=== PATIENT | female | born 1990 | race Caucasian/White ===

== ENCOUNTER 2020-01-14 13:46 | Emergency (ER) | payer MEDICAID, SELFPAY ==
--- NOTE | 2020-01-14 13:56 | XR_ITS ---
EXAMINATION: XR third finger, LEFT CLINICAL INFORMATION: Fracture COMPARISON: None TECHNIQUE: Three views of the left third finger. FINDINGS: There is no evidence of acute fracture or dislocation of the left third finger. Soft tissue swelling is seen about the proximal third interphalangeal joint. XR/XR finger LT min 2V IMPRESSION: Soft tissue swelling left third proximal interphalangeal joint without underlying bony abnormality appreciated.
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
[2020-01-14 14:00] VITALS: BP 136/86; PULSE 96; RESP 14; TEMP 37.3; O2SAT 99; BMI 19.1
== END 2020-01-14 15:37 | disposition home or self-care (01) ==
PROVIDERS: Emergency Provider Emergency Medicine
DX: S60.032A Contusion of left middle finger without damage to nail, initial encounter (principal); M79.645 Pain in left finger(s); Y29.XXXA Contact with blunt object, undetermined intent, initial encounter; Y93.9 Activity, unspecified; Y92.830 Public park as the place of occurrence of the external cause; Y99.9 Unspecified external cause status
CPT/HCPCS: 73140; 99283

== ENCOUNTER → 2020-01-22 10:08 | Outpatient (BNVA) | payer MEDICAID, SELFPAY | PROVIDERS: Visit Provider Orthopaedic Surgery | DX: S63.633A Sprain of interphalangeal joint of left middle finger, initial encounter (principal); M25.642 Stiffness of left hand, not elsewhere classified | CPT/HCPCS: 99202 ==

== ENCOUNTER 2024-08-31 11:15 | Inpatient (IN) | payer OTHER, SELFPAY ==
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
[2024-08-31 11:20] VITALS: BP 126/78; BP 126/80; PULSE 90; RESP 19; TEMP 36.2; O2SAT 99; BMI 17.6
--- OUTSIDE RECORDS SUMMARY | 2024-08-31 11:51 | XMS_ITS | Clinical Summary ---
Author Organization [employer] Address [address] [place] [address] Care Team Providers Care Brand Advisor Name Role Phone Unavailable Primary Care Provider Unavailabl e Social History Tobacco Use Types Packs/Day Years Used Date Smoking Tobacco: Never Assessed Comments Unknown Sex and Gender Information Value Date Recorded Sex Assigned at Female 12/12/2021 10:17 AM EDT Legal Sex Female 10:17 AM EDT Gender Identity Female 05/19/2024 12:57 PM EDT Sexual Orientation Not on file Plan of Treatment Health Maintenance Due Date Last Done Comments Depression Screening 1989 HIV Screening 1989 SDOH Screening 1989 Disability Screening 1989 Alcohol/Substance Use Screening 2001 Tobacco Screening 2001 Family Planning (PISQ) 2004 HPV Vaccines (1 - 3-dose series) 2004 Hepatitis C Screening 09/01/2007 DTaP/Tdap/Td Vaccines (1 - Tdap) 2008 Hepatitis B Vaccines (1 of 3 - 19+ 3-dose series) 2008 Pap Smear 2010 Cervical Cancer Screening 09/01/2019 HPV/Cotest 09/01/2019 COVID-19 Vaccine (1 - 2023-2 5 season) 2023 Influenza Vaccine (#1) 2024 06/30/2021 Zoster Vaccines (1 of 2) 09/01/2039 RSV Patients and Pa tients Aged 60 years or older (1 - 1-dose 75+ series) 2064 HIB Vaccines Aged Out No longer eligi ble based on patient's age to complete this topic Hepatitis A Vaccines Aged Out No long er eligible based on patient's age to complete this topic IPV Vaccines Aged Out No longer eligi ble based on patient's age to complete this topic Meningococcal B Vaccine Aged Out No l onger eligible based on patient's age to complete this topic Meningococcal Vaccine Aged Out No mariana theodore eligible based on patient's age to complete this topic Pneumococcal Vaccine: Pediat rics (0 to 5 Years) and At-Risk Patients (6 to 49) Years Aged Out No longer eligi ble based on patient's age to complete this topic RSV under 20 months Aged Out No longe r eligible based on patient's age to complete this topic Rotavirus Vaccines Aged Out No longer eligible based on patient's age to complete this topic Insurance [facility] [place] [phone]
--- OUTSIDE RECORDS SUMMARY | 2024-08-31 11:51 | XMS_ITS | Encounter Summary ---
Author Organization Formerly [facility] Address [address] [place] [address] Phone Care Team Providers Care Ict Account Manager Name Role Phone Mukesh Jay Primary Care Provider [phone] Encounter Details Date Type Department Care Team (Late st Contact Info) Description 05/30/2022 Telephone [facility]ait[facility] [address] [place] [address] [place] [address] Ramya Don CNM [address] [facility], [address] [place] [address] Social History Tobacco Use Types Packs/Day Years Used Date Smoking Tobacco: Never Smokeless Tobacco: Never Alcohol Use Standard Drinks/Week Comments Not Currently 0 (1 standard drink = 0.6 oz pure alcohol) None during OR POST Comments Yes Sex and Gender Information Value Date Recorded Sex Assigned at Female 03/01/2020 11:19 AM EST Legal Sex Female 10:26 AM EST Gender Identity Female 03/01/2020 11:19 AM EST Sexual Orientation Not on file Occupation Industry Job Start Date Job End Date Stay at home mom Not on file Not on file Not on file documented as of this encounter Plan of Treatment Not on file documented as of this encounter Visit Diagnoses Not on filedocumented in this encounter Care Teams Ict Account Manager Relationship Specialty Start Date End Date Mukesh Jay PA [address] [place] [address] [address] [place] [address] [email or web address] PCP - General Unknown Provider Specialty 01/12/20 documented as of this encounter Additional Source Comments The information contained in this document represents components of the legal health record. It is not the complete legal health record.Formerly [facility]
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
[2024-08-31 11:56] LABS: MANUAL DIFF FLAG NO
[2024-08-31 11:57] LABS: Hematocrit 40.6 % (37.0-47.0); Hemoglobin 13.6 g/dl (12.0-16.0); Imm Gran Abs Auto 0.01 X10*3/uL (0.00-0.03); Imm Gran Pct Auto 0.1 % (0.0-0.4); Lymphocytes Absolute Auto 2.6 X10*3/uL (1.2-4.9); Mean Corpuscular HGB Conc 33.5 g/dl (31.0-35.0); Mean Corpuscular Hemoglobin 28.5 pg (27.0-33.0); Mean Corpuscular Volume 85.1 fL (80.0-98.0); NRBC Abs Auto 0.000 X10*3/uL (0.0-0.012); NRBC Pct Auto 0.0 /100WBC (0.0-0.2); Platelet Count 265 X10*3/uL (160-400); Red Blood Count 4.77 X10*6/uL (4.20-5.50); White Blood Count 6.9 X10*3/uL (4.8-10.8)
[2024-08-31 12:07] LABS: COVID-19 Test Negative (Negative); IDNOW Serial# 55D5AD1C
[2024-08-31 12:14] LABS: Acetaminophen LAB < 3 mcg/mL (<30); Alanine Aminotransferase 30 U/L (0-31); Albumin Level 4.7 g/dL (3.5-5.0); Alkaline Phosphatase 55 U/L (39-117); Anion Gap 14 (12-20); Aspartate Amino Transferase 24 U/L (5-31); Blood Urea Nitrogen 13 mg/dL (9-16); Calcium 9.1 mg/dL (8.4-10.2); Carbon Dioxide 26 mmol/L (22-29); Chloride 107 mmol/L (96-108); Creatinine Clr Calc Pharmacy 85.8; Estimated Glomerular Filt Rate > 60; Potassium 3.8 mmol/L (3.3-5.1); Salicylate < 5.0 mg/dL (15-30); Sodium 143 mmol/L (135-145); Total Protein 6.6 g/dL (6.5-8.0)
--- NOTE | 2024-08-31 14:32 | PC.NURSE ---
Pt began yelling out at staff, offered multiple things by provider, pt in agreement to take PO ativan, this rn medicated per MAR, emotional support provided at this time.
[2024-08-31 16:25] VITALS: BP 103/60; PULSE 55; RESP 15; TEMP 36.2; O2SAT 99
--- NOTE | 2024-08-31 18:08 | PC.NURSE ---
Pt oob to try give urine sample; unable to provide sample at this time; pt anxious, stating she doesn't need to be here ; pt redirected, given po fluids and a snack; pt cooperating at this time
[2024-08-31 21:41] LABS: Appearance Urine Clear; Glucose Urine UA Negative (Negative); PH 7.0 (5.0-9.0); Specific Gravity - Urine 1.025 (1.005-1.025); UMIC TRIGGER UA YES
[2024-08-31 21:42] LABS: UPreg QC Valid YES
[2024-08-31 21:51] LABS: Cannabinoid Screen Urine POSITIVE (Not Detect)
--- NOTE | 2024-09-01 05:26 | PC.NURSE ---
pt came up to nurses station approx 1944 stating she needs to leave to be at work for 299 and needed to be seen by crisis in that moment. this rn told pt i would reach out to care team to see what the plan is for tonight. pt stated there's no plan, i'm not staying overnight. rephrased myself and stated i will speak to care team and let her know what they say. pt stated well i'm not seeing you put the effort in picking up the phone or writing an email. then pt turned around and returned to room. call made to care team who stated pt was seen by CHD and will be reassessed by CARE in AM however plan likely IPLOC. Zhane RAMOS made aware of situation who stated pt was educated on plan of care multiple times and is aware of section 12 and requiring stay overnight with plan for reassess in AM. RACHEL ordered ativan 2mg PO as had good affect earlier. however at that time pt resting comfortably in bed with eyes closed. approx [id number] pt came back to nurses station requesting medication. pt medicated per apr and slept overnight with no events at this time.
[2024-09-01 06:53] VITALS: BP 104/75; PULSE 60; RESP 20; TEMP 37; O2SAT 100
--- NOTE | 2024-09-01 07:10 | PC.NURSE ---
Assumed care of patient at 0645, patient appears to be in no apparent distress this am, showering at this time, offering no complaints to this RN. Per night RN, pt continued to test boundaries with staff, demanding discharge. At this time, pt is a CHD IPLOC but the plan is for CARE team to re-evaluate this am
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
--- NOTE | 2024-09-01 08:22 | PHA.MEDREC ---
Addendum entered by Carlito Botello PharmD 09/01/24 08:56: reviewed Original Note: Pharmacy Consult ? Medication Reconciliation Pharmacy has reviewed the medication reconciliation done by nursing. Claims match med list.
[2024-09-01 16:30] VITALS: BP 120/79; PULSE 83; RESP 16; TEMP 36.4; O2SAT 100
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
[2024-09-01 19:10] VITALS: BMI 17.8
[2024-09-01 20:00] VITALS: BP 124/74; PULSE 67; RESP 14; TEMP 36.9; O2SAT 100
[2024-09-02 07:35] VITALS: BP 110/82; PULSE 85; RESP 17; TEMP 36.4; O2SAT 100
[2024-09-02 08:27] LABS: Hemoglobin A1C 128.1986 umol/L; Total Hemoglobin (HGBA1C) 3871.0066 umol/L
[2024-09-02 08:38] LABS: Cholesterol 180 mg/dL (<200); HDL Cholesterol 51 mg/dL (>40); Triglycerides 81 mg/dL (<150)
[2024-09-02 08:54] LABS: Free T4 (Free Thyroxine) 1.44 ng/dL (0.71-1.85); Thyroid Stimulating Hormone 1.58 uIU/mL (0.32-4.0)
[2024-09-02 09:06] LABS: Folate 7.4 ng/mL (> or = 4.0); Vitamin B12 566 pg/mL (200-900)
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
[2024-09-02 20:00] VITALS: BP 112/56; PULSE 77; RESP 16; TEMP 36.8; O2SAT 100
[2024-09-03 07:45] VITALS: BP 120/75; PULSE 68; RESP 16; TEMP 36.8; O2SAT 97
[2024-09-03 10:01] LABS: Ammonia 25 umol/L (13-55)
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
== END 2024-09-03 11:05 | disposition home or self-care (01) | DRG 885 ==
LOC: HO.ED 09-01 12:27 → HO.PADLT16 09-01 12:29
PROVIDERS: Physician Assistant Medical; Admitting Provider Psychiatry & Neurology Psychiatry; Emergency Provider Emergency Medicine; Visit Provider Psychiatry & Neurology Psychiatry
DX: F31.9 Bipolar disorder, unspecified (principal); F17.210 Nicotine dependence, cigarettes, uncomplicated; Z71.6 Tobacco abuse counseling; Z20.822 Contact with and (suspected) exposure to COVID-19; Z79.899 Other long term (current) drug therapy
CPT/HCPCS: 36415; 80053; 80061; 80143; 80164; 80179; 80307; 81001; 81025; 82140; 82607; 82746; 83036; 84439; 84443; 85025; 87635; 99285

== ENCOUNTER → 2024-09-01 12:21 | Outpatient (BNV) | payer OTHER, SELFPAY | PROVIDERS: Admitting Provider Psychiatry & Neurology Psychiatry; Emergency Provider Emergency Medicine; Visit Provider Psychiatry & Neurology Psychiatry | DX: F31.4 Bipolar disorder, current episode depressed, severe, without psychotic features (principal) | CPT/HCPCS: 90792; 99239 ==

== ENCOUNTER 2024-09-13 06:37 | Inpatient (IN) | payer MEDICAID, SELFPAY ==
--- NOTE | ~2024-09-13 | XR_ITS ---
CLINICAL HISTORY: fall 3 view left ankle Comparison: None provided Findings: No acute fractures. Ankle mortise intact. No significant loss of joint space, osteophytes, or erosions. No ankle effusion. No radiopaque foreign body. IMPRESSION: 1. No acute findings. This document has been electronically signed by: Dimas Chanel MD on 09/13/2024 08:00:26
[2024-09-13 07:00] VITALS: BP 124/86; BP 154/86; PULSE 55; PULSE 62; RESP 19; TEMP 37; O2SAT 100; BMI 26.6
[2024-09-13 07:10] VITALS: BP 154/86; PULSE 62; RESP 19; TEMP 37; O2SAT 100
--- NOTE | 2024-09-13 07:11 | ED_ITS ---
HPI - Psych General Chief Complaint: Psychiatric Symptoms Stated Complaint: SECTION 12 Time Seen by Provider: 09/13/24 07:04 History of Present Illness HPI Narrative: Patient is a 34-year-old female presents today EMS report patient has been hearing voices. Telling her to submit her flush to the Lord. Patient currently denies any auditory visual hallucination no suicidal not homicidal feels depressed. Patient denies any focal weakness. Noncompliant with medications. Denies any recreational drugs Related Data Previous Rx's ?Medication ?Instructions ?Recorded chlorpromazine 25 mg tablet 50 mg (2 x 25 mg) PO BID P RN 09/03/24 agitation 30 days #120 tabs divalproex 500 mg tablet,delayed 500 mg PO Q12H depres sive disorder 09/03/24 release 30 days #60 tabs melatonin 3 mg tablet 3 mg PO BEDTIME PRN insomnia 30 09/03/24 days #30 tabs nicotine (polacrilex) 2 mg gum 4 mg buccal Q2H PRN Po otine 09/03/24 Cravings 30 days #120 ea risperidone 1 mg tablet 1 mg PO BEDTIME 30 days #30 tabs 09/03/24 trazodone 50 mg tablet 50 mg PO BEDTIME PRN insomni a 30 09/03/24 days #30 tabs Allergies Allergy/AdvReac Type Severity Reaction Status Date / Time No Known Allergies (No Known Allergy Verified 09/13/24 07:02 Allergies*) Review of Systems 2 Review of Systems: No fever no chills no chest pain Yes all other systems are reviewed and are negative PMFSH Past Medical History Attestation statement: The following information was validated with the patient. Medical History No known health problems Social History Social History Household Members: Other Household Members Other:: Cousin Housing: Apartment Do you presently have visiting nurse or other home services: No Patient Tobacco Use Status: Current everyday Tobacco user Tobacco use type: Cigarette Cigarettes Per Day: 2 Smoked in Last 30 Days: Yes e-Cigarette/Vaping Use: Never Used Second Hand Smoke Exposure: No Use of substances other than those prescribed or required for medical reasons: No Advance Directives: No Advance Directives Information Provided: Yes Do you have a plan to hurt others: No Plan Patient : No service: No Current occupational status: unemployed Current occupation: Right Handed Sexual orientation: Straight/Heterosexual Physical Exam 2 Exam: Exam: Appearance: Alert. Oriented X3. No acute distress. Eyes: Pupils equal, round and reactive to light. ENT: Pharynx normal. Neck: Normal inspection. Neck supple. No lymph nodes noted. No crepitus CVS: Normal heart rate and rhythm. Pulses normal. Normal S1 and S2 Respiratory: No respiratory distress. Breath sounds normal. No Wheezing. No rales Abdomen: Soft and nontender. No rigidity. No distention. good BS x4 Skin: Skin warm and dry. Normal skin color. Normal skin turgor. Extremities: No lower extremity edema. Neurovascular intact to all extremities. No Lacerations. No Rash Neuro: Oriented X 3. No motor deficit. No sensory deficit. Moving all extermities. No slurred speech. Cranial nerves grossly intact Vital Signs: Vital Signs: Last Vital Signs Temp 97.0 F 09/14/24 18:26 Pulse 87 09/14/24 18:26 Resp 18 09/14/24 18:26 BP 134/88 09/14/24 18:26 Pulse Ox 99 09/14/24 18:26 O2 Del Method Room Air 09/14/24 18:26 BMI result Body Mass Index 26.6 Course Course Course Narrative: Time: 11:27 Date: 09/14/24 Provider: Malika Danielson MD Patient in physician observation for psychiatric evaluation.? No acute events reported overnight. No current complaints. VS stable.? Patient is in bed search status/pending CARE team evaluation. Will continue to monitor. Reevaluation(s) Reevaluation #1: Time: 07:32 Date: 09/15/24 Provider: Malika Danielson MD Patient in physician observation for psychiatric evaluation.? No acute events reported overnight. No current complaints. VS stable.? Patient is in bed search status/pending CARE team evaluation. Will continue to monitor. Medications Administered Generic Name Dose Route Start Last Admin Trade Name Freq PRN Reason Stop Dose Admin Chlorpromazine HCl 50 mg 09/13/24 21:56 09/14/24 18:45 Chlorpromazine Hcl 25 Mg Tablet PO 50 mg BID PRN Administration agitation Divalproex Sodium 500 mg 09/13/24 22:00 09/14/24 21:07 Divalproex Sodium 500 Mg Tablet. PO 500 mg BID AMY Administration Melatonin 3 mg 09/13/24 21:56 09/14/24 21:21 Melatonin 3 Mg Tablet PO 3 mg BEDTIME PRN Administration Insomnia Risperidone 1 mg 09/13/24 22:00 09/14/24 21:07 Risperidone 1 Mg Tablet PO 1 mg BEDTIME AMY Administration Trazodone HCl 50 mg 09/13/24 21:56 09/14/24 21:07 Trazodone Hcl 50 Mg Tablet PO 50 mg BEDTIME PRN Administration Insomnia Discontinued Medications Generic Name Dose Route Start Last Admin Trade Name Freq PRN Reason Stop Dose Admin Lorazepam 1 mg 09/13/24 17:38 09/13/24 18:20 Lorazepam 1 Mg Tablet PO 09/13/24 17:39 1 mg ONCE ONE Administration Lorazepam 1 mg 09/14/24 11:19 09/14/24 11:41 Lorazepam 1 Mg Tablet PO 09/14/24 11:20 1 mg ONCE ONE Administration Medical Decision Making Medical Decision Making MDM Narrative: Will get x-rays and labs will monitor. No distress. Care team consulted September 14 11:00 Took over patient's case at the change of shift. Currently awaiting crisis evaluation. No distress. Differential Diagnosis Differential Diagnoses: The differential diagnosis associated with the presentation includes Depression anxiety sprained ankles, fracture Consult Healthcare Provider Management of the patient was discussed with: Lead Fabricator (Care team) Lab Data 09/13/24 07:21 09/13/24 07:21 Labs: Lab Results 09/13/24 Range/Units 07:21 WBC 8.6 (4.8-10.8) X10*3/uL RBC 4.63 (4.20-5.50) X10*6/uL Hgb 13.1 (12.0-16.0) g/dl Hct 38.6 (37.0-47.0) % MCV 83.4 (80.0-98.0) fL MCH 28.3 (27.0-33.0) pg MCHC 33.9 (31.0-35.0) g/dl RDW 14.1 (11.0-16.0) % Plt Count 242 (160-400) X10*3/uL MPV 10.5 (9.4-12.3) fL Immature Gran % (Auto) 0.2 (0.0-0.4) % Neut % (Auto) 51.2 (45-73) % Lymph % (Auto) 30.2 (20-40) % [place] % (Auto) 11.6 H (2-11) % Eos % (Auto) 6.6 H (0-4) % Baso % (Auto) 0.2 (0-2) % Lymph # (Auto) 2.6 (1.2-4.9) X10*3/uL [place] # (Auto) 1.0 (0.1-1.2) X10*3/uL Eos # (Auto) 0.6 H (0.0-0.4) X10*3/uL Baso # (Auto) 0.0 (0.0-0.2) X10*3/uL Abs Immat Gran (auto) 0.02 (0.00-0.03) X10*3/uL Absolute Neuts (auto) 4.4 (2.0-8.3) x10*3/uL Absolute Nucleated RBC 0.000 (0.0-0.012) X10*3/uL Nucleated RBC % (auto) 0.0 (0.0-0.2) /100WBC Sodium 139 (135-145) mmol/L Potassium 4.0 (3.3-5.1) mmol/L Chloride 107 (96-108) mmol/L Carbon Dioxide 24 (22-29) mmol/L Anion Gap 12 (12-20) BUN 14 (9-16) mg/dL Creatinine 0.65 (0.5-1.4) mg/dL Estim Creat Clear Calc 116.2 Estimated GFR > 60 Random Glucose 90 (60-115) mg/dL Calcium 9.2 (8.4-10.2) mg/dL Total Bilirubin 0.7 (0.0-1.0) mg/dL AST 93 H (5-31) U/L ALT 184 H (0-31) U/L Alkaline Phosphatase 135 H (39-117) U/L Total Protein 7.0 (6.5-8.0) g/dL Albumin 4.6 (3.5-5.0) g/dL Urine Color Dark Yellow Urine Appearance Clear Urine pH 7.0 (5.0-9.0) Ur Specific [place] 1.025 (1.005-1.025) Urine Protein Trace (Neg-Trace) mg/dL Urine Glucose (UA) Negative (Negative) mg/dL Urine Ketones 15 (Negative) mg/dL Urine Blood Negative (Negative) Urine Nitrite Negative (Negative) Ur Leukocyte Esterase Small (1+) H (Negative) Urine RBC 0-2 (0-2) /HPF Urine WBC 6-10 (0-5) /HPF Ur Squamous Epith Cells 6-10 (0-2) /HPF Urine Bacteria 2+ (None Seen) Hyaline Casts 0-2 (0-2) /LPF Urine Test NEGATIVE (NEGATIVE) Salicylates < 5.0 L (15-30) mg/dL Urine Opiates Screen Not Detected (Not Detect) Ur Buprenorphine Scrn Not Detected (Not Detect) ng/mL Ur Oxycodone Screen Not Detected (Not Detect) ng/mL Urine Methadone Screen Not Detected (Not Detect) ng/mL Urine Fentanyl Screen Not Detected (Not Detect) Ur Barbiturates Screen Not Detected (Not Detect) Ur Phencyclidine Scrn Not Detected (Not Detect) Ur Amphetamines Screen Not Detected (Not Detect) U Benzodiazepines Scrn Not Detected (Not Detect) Urine Cocaine Screen Not Detected (Not Detect) U Marijuana (THC) Screen POSITIVE H (Not Detect) Ethyl Alcohol < 10 mg/dL Discharge Plan Discharge Prescriptions: No Action nicotine (polacrilex) 2 mg Gum 4 mg buccal Q2H PRN (Reason: Nicotine Cravings) 30 Days Qty: 120 0RF chlorpromazine 25 mg Tablet 50 mg PO BID PRN (Reason: agitation) 30 Days Qty: 120 0RF risperidone 1 mg Tablet 1 mg PO BEDTIME 30 Days Qty: 30 0RF trazodone 50 mg tablet 50 mg PO BEDTIME PRN (Reason: insomnia) 30 Days Qty: 30 0RF melatonin 3 mg tablet 3 mg PO BEDTIME PRN (Reason: insomnia) 30 Days Qty: 30 0RF divalproex 500 mg tablet,delayed release (DR/EC) 500 mg PO Q12H 30 Days Qty: 60 0RF Interventions: [place]-Suicide Risk Severity Scale Last Done: 09/13/24 07:10 Print Language: Northern Irish
[2024-09-13 07:25] LABS: MANUAL DIFF FLAG NO
[2024-09-13 07:28] LABS: Appearance Urine Clear; Glucose Urine UA Negative (Negative); PH 7.0 (5.0-9.0); Specific Gravity - Urine 1.025 (1.005-1.025); UMIC TRIGGER UACC YES
--- NOTE | 2024-09-13 07:30 | PC.NURSE ---
Patient calm and cooperative at this time. A&O x 3. Patient presents to ED after family reports patient has been hearing audio hallucination Submitting her flesh to the lord . Patient denies audio or visual hallucinations at this time. Patient appears depressed saying I hate my uatsdin, my baby daddy, and my family . Patient has been non compliant with medication regimen. Patient states I dont take my meds as it goes against my abhilash, and the devil says it makes me weak . Patient does complain of left ankle pain rated 7/10 non radiating. +CMS +ROM. Patient escorted to xray by [employer] and security, awaiting results of scan.
[2024-09-13 07:32] LABS: Hematocrit 38.6 % (37.0-47.0); Hemoglobin 13.1 g/dl (12.0-16.0); Imm Gran Abs Auto 0.02 X10*3/uL (0.00-0.03); Imm Gran Pct Auto 0.2 % (0.0-0.4); Lymphocytes Absolute Auto 2.6 X10*3/uL (1.2-4.9); Mean Corpuscular HGB Conc 33.9 g/dl (31.0-35.0); Mean Corpuscular Hemoglobin 28.3 pg (27.0-33.0); Mean Corpuscular Volume 83.4 fL (80.0-98.0); NRBC Abs Auto 0.000 X10*3/uL (0.0-0.012); NRBC Pct Auto 0.0 /100WBC (0.0-0.2); Platelet Count 242 X10*3/uL (160-400); Red Blood Count 4.63 X10*6/uL (4.20-5.50); White Blood Count 8.6 X10*3/uL (4.8-10.8)
[2024-09-13 07:40] LABS: UACC Culture Trigger YES
[2024-09-13 07:48] LABS: Alanine Aminotransferase 184 U/L (0-31); Albumin Level 4.6 g/dL (3.5-5.0); Alkaline Phosphatase 135 U/L (39-117); Anion Gap 12 (12-20); Aspartate Amino Transferase 93 U/L (5-31); Blood Urea Nitrogen 14 mg/dL (9-16); Calcium 9.2 mg/dL (8.4-10.2); Carbon Dioxide 24 mmol/L (22-29); Chloride 107 mmol/L (96-108); Creatinine Clr Calc Pharmacy 116.2; Estimated Glomerular Filt Rate > 60; Potassium 4.0 mmol/L (3.3-5.1); Salicylate < 5.0 mg/dL (15-30); Sodium 139 mmol/L (135-145); Total Protein 7.0 g/dL (6.5-8.0)
[2024-09-13 07:52] LABS: Cannabinoid Screen Urine POSITIVE (Not Detect)
--- OUTSIDE RECORDS SUMMARY | 2024-09-13 08:56 | XMS_ITS | Clinical Summary ---
Author Organization [employer] Address [address] [place] [address] Care Team Providers Care Director [employer] Name Role Phone Unavailable Primary Care Provider [...] to complete this topic Insurance [facility] [place] [id number]
--- OUTSIDE RECORDS SUMMARY | 2024-09-13 08:56 | XMS_ITS | Clinical Summary ---
Author Organization [facility] Address [address] [place] [phone] Phone Care Team Providers [employer] Name Role Phone Physician, No Pcp Primary Care Provider Unavaila ble Allergies No known active allergies Medications omeprazole (PriLOSEC) [address] capsule Take 1 capsule (20 mg total) by mouth 2 (two) times a day. Active Social History Tobacco Use Types Packs/Day Years Used Date Smoking Tobacco: Never Assessed Comments No Sex and Gender Information Value Date Recorded Sex Assigned at Female 05/08/2024 8:56 PM EDT Legal Sex Female 8:43 PM EST Gender Identity Female 05/08/2024 8:56 PM EDT Sexual Orientation Straight 05/08/2024 8: 56 PM EDT Last Filed Vital Signs Vital Sign Reading Time Taken Comments Blood Pressure 108/66 05/09/2024 5:03 AM EDT Pulse 66 05/09/2024 5:03 AM EDT Temperature 36.7 C (98.1 F) 05/09/2024 5:03 AM EDT Respiratory Rate 16 05/09/2024 5:03 AM EDT Oxygen Saturation 98% 05/09/2024 5:03 AM EDT Inhaled Oxygen Concentration - - Weight 38.6 kg (85 lb) 05/08/2024 9:46 PM EDT Height 152.4 cm (5') 05/08/2024 9:46 PM EDT Body Mass Index 16.6 05/08/2024 9:46 PM EDT Plan of Treatment Health Maintenance Due Date Last Done Comments DTaP,Tdap,and Td Vaccines (1 - Tdap) 2008 Hepatitis B Vaccines (1 of 3 - 19+ 3-dose series) 2008 Cervical Cancer Screening: P ap Smear 2010 HIV Screening 03/09/2023 Social Influencers of Health Screening 03/09/2023 COVID-19 Vaccine (3 - 2023-2 5 season) 2023 12/29/2020, 12/08/2020 Depression Screening 02/13/2024 Influenza Vaccine (#1) 2024 06/30/2021 Hepatitis C Screening Completed 06/22/2022 HIB Vaccines Aged Out No longer eligi ble based on patient's age to complete this topic HPV Vaccines Aged Out No longer eligi ble based on patient's age to complete this topic Hepatitis A Vaccines Aged Out No long er eligible based on patient's age to complete this topic IPV Vaccines Aged Out No longer eligi ble based on patient's age to complete this topic MMR Vaccines Aged Out No longer eligi ble based on patient's age to complete this topic Meningococcal ACWY Vaccine Aged Out N o longer eligible based on patient's age to complete this topic Meningococcal B Vaccine Aged Out No l onger eligible based on patient's age to complete this topic Pneumococcal Vaccine: Pediatrics (0 to 5 Years) and At-Risk Patients (6 to 49 Years) Aged Out No longer eligible b ased on patient's age to complete this topic RSV Immunization Patients Under 20 months Aged Out No longer eligible b ased on patient's age to complete this topic Varicella Vaccines Aged Out No longer eligible based on patient's age to complete this topic Insurance [employer] Care Teams [employer] Relationship Specialty Start Date End Date Physician, No Pcp PCP - General 05/08/24
[2024-09-13 09:57] LABS: UPreg QC Valid YES
--- NOTE | 2024-09-13 10:54 | PC.NURSE ---
Medication rec completed, confirmed with patient and Bianca Church at [facility] on [facility] [facility]. Patient said she stopped taking her medications a few weeks ago but doesnt know exact date
--- NOTE | 2024-09-13 13:27 | MHC.CARE ---
Pt will be an inpatient bedsearch.
[2024-09-13 14:22] VITALS: BP 143/82; PULSE 63; RESP 13; TEMP 36.6; O2SAT 100
--- NOTE | 2024-09-13 18:23 | PC.NURSE ---
Patient c/o of anxiety, notified Provider. Administered medication per MAR. Effectiveness pending. Patient also stated I would like to start all my medications again Patient remains calm and cooperative
--- NOTE | 2024-09-13 22:00 | PHA.MEDREC ---
Pharmacy Consult ? Medication Reconciliation Pharmacy has reviewed the medication reconciliation completed by Nursing.
--- NOTE | 2024-09-13 22:56 | PC.NURSE ---
Patient sleeping, awakens easily to verbal stimuli. skin pwd, resp even and non labored, speaking in full, clear sentences. refusing medications at this time, patient apologizing, states she not trying to be rude. patient asked if she is doing okay at this time, patient replied yes, eva and rolled back onto her side to go back to sleep.
--- NOTE | 2024-09-14 02:20 | PC.NURSE ---
patient up and ambulatory to bathroom w/ steady gait then returned to bed
--- NOTE | 2024-09-14 04:15 | PC.NURSE ---
patient woke up to use the restroom. no complaints at this time. ambulated to the restroom w/ a strong/steady gait. no use of assistive devices needed. pt now resting back in bed w/ lights dimmed/eyes closed. patient remains in no apparent distress at this time. pt continues to remain inpatient bed search at this time. plan of care ongoing.
[2024-09-14 07:35] VITALS: BP 129/77; PULSE 65; RESP 18; TEMP 36.7; O2SAT 100
--- NOTE | 2024-09-14 08:06 | PC.NURSE ---
patient speaking w/ care team at this time. plan of care/disposition ongoing.
[2024-09-14 18:26] VITALS: BP 134/88; PULSE 87; RESP 18; TEMP 36.1; O2SAT 99
--- NOTE | 2024-09-15 | ECG_ITS ---
Test Reason : check for prolong QT Blood Pressure : */* mmHG Vent. Rate : 77 BPM Atrial Rate : 77 BPM P-R Int : 172 ms QRS Dur : 72 ms QT Int : 338 ms P-R-T Axes : 70 76 55 degrees QTcB Int : 382 ms Normal sinus rhythm Possible Left atrial enlargement Borderline ECG No previous ECGs available Referred By: Henry Krause Electronically Signed By: YEVGENIY CARLOS
--- NOTE | 2024-09-15 10:20 | PC.NURSE ---
Assumed care of pt at 0700. Pt a/ox3, oob doing puzzle- calm/cooperative, interacting with staff. Pt became emotional about life stressors/family- was able to verbalize feelings to studio technician video operator and engage in conversation about feelings. Pt remains doing puzzle, calm/cooperative after verbalizing feelings. Pt refused morning medication- this RN provider pt education on need for medication. Pt willingly took medication whole with water. Appears in no distress, all needs met at this time.
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
--- NOTE | 2024-09-15 15:04 | PC.ADMIT ---
Eileen was admitted from [facility] [place] on a CV for treatment of unspecified psychosis. On arrival she had a brief verbal outburst, was able to use coping skills to quickly calm. She was cooperative with the change management manager process, skin check unremarkable. Patient denies SI/HI, reports that she would like to go to the restorationism and curse them out but denies intent. She reports feeling angry every day, that she does not know how to be at home with her children. Eileen presents as religiously preoccupied, frequently referring to Daniel and praying. She reports feeling a lack of motivation and increased depression due to the loss of her children to DCF. She denies drug and alcohol use, endorses only using marijuana. She states that she was not taking her medications regularly because she does not like the way the medications make her feel, stating that she feels like a druggie and doesn't feel like herself. She denies medical issues. Eileen is on 15 minute safety checks.
--- NOTE | 2024-09-15 16:07 | MHC.CLN ---
NUTRITION CONSULT FOR REPORTED WEIGHT OS AND DECREASED INTAKE WITH ACUTE NAUSEA OR VOMITING X ONE WEEK. ADMITTED TO UNIT TODAY. RD WILL FOLLOW UP IN 2 DAYS TO CHECK PO INTAKE.
[2024-09-15 20:00] VITALS: BP 138/72; PULSE 84; RESP 16; TEMP 37.2; O2SAT 100
[2024-09-15] MEDS: Milk of Magnesia 30 ML ORAL.SUSP PO (20:50)
[2024-09-16 08:00] VITALS: BP 140/80; PULSE 113; RESP 16; TEMP 36.6; O2SAT 100
--- NOTE | 2024-09-16 09:15 | PC.NURSE ---
Pt signed a 3 day 09/16, up on 09/19/24
--- NOTE | 2024-09-16 13:45 | HO.PSYCHPN ---
Subjective Subjective Date of Service: 09/16/24 Reason For Visit: Psychosis/rodrigo Interim History: calm, cooperative, pleasant. non-labile, reasonable. contends that her emotional travails are related to her loss of her children to DCF rather than any mental illness. does speak positively of lithium, however. discussed 3-day notice and plan to discharge sunday. per staff, denies SI/HI. angry. had not been taking meds since last hospitalization due to their making her feel not herself and like a druggie. slept 8 hours. Mental Status Exam Mental Status Exam Narrative: adequately dressed and groomed. cooperative. no PMA/PMR. speech nml rate, amount, latency. nml loudness and tone. thoughts linear, logical, no mormon talk. affect constricted, normo-intense, non-labile. mood improved. no SI/SIBI/HI/AVH expressed. Diagnostics Vital Signs (24Hr): Vital Signs - 24 hr 09/15/24 20:00 09/16/24 08:00 Temperature 98.9 F 97.9 F Pulse Rate 84 113 H Respiratory Rate 16 16 Blood Pressure 138/72 140/80 H Pulse Oximetry 100 100 Oxygen Delivery Method Room Air Room Air BMI result Body Mass Index 26.6 Labs 09/13/24 07:21 09/13/24 07:21 Medications Medications Current Medications Acetaminophen (Acetaminophen 325 Mg Tablet) 650 mg PO Q6H PRN PRN Reason: Headache/Pain, Scale 1-10 Al Hydroxide/Mg Hydroxide (Magnesium Hydrox/Alum Hydrox 30 Ml Oral.Susp) 30 ml PO Q6H PRN PRN Reason: Heartburn/Nausea Chlorpromazine HCl (Chlorpromazine Hcl 25 Mg Tablet) 50 mg PO BID PRN PRN Reason: agitation Last Admin: 09/15/24 18:26 Dose: 50 mg Hydroxyzine HCl (Hydroxyzine Hcl 25 Mg Tablet) 25 mg PO Q6H PRN PRN Reason: mild anxiety [place] Carbonate ([place] Carbonate Er 450 Mg Tablet.Er) 450 mg PO BID AMY Last Admin: 09/16/24 08:40 Dose: 450 mg Magnesium Hydroxide (Milk Of Magnesia 30 Ml Oral.Susp) 30 ml PO DAILY PRN PRN Reason: Constipation Last Admin: 09/15/24 20:50 Dose: 30 ml Melatonin (Melatonin 3 Mg Tablet) 3 mg PO BEDTIME PRN PRN Reason: Insomnia Last Admin: 09/15/24 20:50 Dose: 3 mg Nicotine Polacrilex (Nicotine Polacrilex 2 Mg Gum) 4 mg BUCCAL Q2H PRN PRN Reason: Nicotine Cravings Risperidone (Risperidone 1 Mg Tablet) 1 mg PO BEDTIME AMY Last Admin: 09/15/24 20:27 Dose: 1 mg Allergies Allergies Allergy/AdvReac Type Severity Reaction Status Date / Time No Known Allergies (No Known Allergy Verified 09/13/24 07:02 Allergies*) Assessment & Plan Assessment & Plan (1) Bipolar disorder: Status: Acute Code(s): F31.9 - Bipolar disorder, unspecified Plan 09/15: start lithium 450 BID. DC VPA (LFT increases, pt has not been taking outpatient otherwise). continue home meds otherwise, rich risperidone 1 mg at HS. 09/16: mood improved and non-labile today. no mention of methodist. feeling positively re lithium. continnue current mgmt. Reason for continued inpatient stay Substantial Risk for: harm to self, harm to others, inability to function and rapid decompensation Time Spent With Patient Time: Total time managing care of this patient today __25__ minutes.
[2024-09-16 20:45] VITALS: BP 120/73; PULSE 120; RESP 16; TEMP 37.1; O2SAT 97
[2024-09-17 07:37] VITALS: BP 124/94; PULSE 121; RESP 18; TEMP 36.7; O2SAT 100
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
--- NOTE | 2024-09-17 13:12 | MHC.CLN ---
F/U PATIENT ATE 100% OF BREAKFAST AND LUNCH MEALS TODAY. DIET=REGULAR. NO ADDITIONAL NUTRITION INTERVENTIONS AT THIS TIME.
[2024-09-17 19:20] VITALS: BP 126/84; PULSE 104; RESP 16; TEMP 37; O2SAT 98
[2024-09-17] MEDS: Milk of Magnesia 30 ML ORAL.SUSP PO (20:42)
[2024-09-18 07:00] VITALS: BMI 15.5
[2024-09-18 07:41] VITALS: BP 114/75; PULSE 90; RESP 20; TEMP 36.9; O2SAT 100
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
[2024-09-18 20:00] VITALS: BP 127/91; PULSE 119; RESP 17; TEMP 36.8; O2SAT 100
[2024-09-18 20:27] LABS: Lithium 0.70 mmol/L (0.60-1.20)
[2024-09-18 20:39] LABS: Anion Gap 16 (12-20); Blood Urea Nitrogen 22 mg/dL (9-16); Calcium 10.5 mg/dL (8.4-10.2); Carbon Dioxide 30 mmol/L (22-29); Chloride 101 mmol/L (96-108); Creatinine Clr Calc Pharmacy 75.9; Estimated Glomerular Filt Rate > 60; Potassium 3.6 mmol/L (3.3-5.1); Sodium 143 mmol/L (135-145)
[2024-09-18 21:33] LABS: Glucose, Whole Blood 127 mg/dL (60-115)
[2024-09-19 07:40] VITALS: BP 120/78; PULSE 96; RESP 16; TEMP 37; O2SAT 100
== END 2024-09-19 10:09 | disposition home or self-care (01) | DRG 753 ==
LOC: HO.ED 21:56 → HO.PADLT16 09-15 12:24
PROVIDERS: Emergency Medicine Emergency Medical Services; Admitting Provider Psychiatry & Neurology Psychiatry; Emergency Provider Emergency Medicine; Visit Provider Psychiatry & Neurology Psychiatry
DX: F31.9 Bipolar disorder, unspecified (principal); F17.210 Nicotine dependence, cigarettes, uncomplicated; Z71.6 Tobacco abuse counseling; Z62.810 Personal history of physical and sexual abuse in childhood; Z79.899 Other long term (current) drug therapy
CPT/HCPCS: 36415; 73610; 80048; 80053; 80178; 80179; 80307; 81001; 81025; 82947; 85025; 87086; 93005; 99285; S9485

== ENCOUNTER → 2024-09-13 07:13 | Outpatient (BNV) | payer MEDICAID, SELFPAY | PROVIDERS: Emergency Provider Emergency Medicine Emergency Medical Services; Visit Provider Radiology Vascular & Interventional Radiology | DX: M25.572 Pain in left ankle and joints of left foot (principal) | CPT/HCPCS: 73610 ==

== ENCOUNTER 2024-09-15 12:23 | Outpatient (BNV) | payer MEDICAID, SELFPAY | END 2024-09-15 12:28 | PROVIDERS: Admitting Provider Psychiatry & Neurology Psychiatry; Emergency Provider Emergency Medicine; Visit Provider Internal Medicine | DX: Z13.6 Encounter for screening for cardiovascular disorders (principal) | CPT/HCPCS: 93010 ==

== ENCOUNTER → 2024-09-15 12:23 | Outpatient (BNV) | payer OTHER, SELFPAY | PROVIDERS: Admitting Provider Psychiatry & Neurology Psychiatry; Emergency Provider Emergency Medicine; Visit Provider Psychiatry & Neurology Psychiatry | DX: F31.13 Bipolar disorder, current episode manic without psychotic features, severe (principal) | CPT/HCPCS: 90792; 99231; 99239 ==